=== PATIENT | female | born 1990 | race Caucasian/White ===

== ENCOUNTER 2018-06-30 21:44 | Emergency (ER) | payer SELFPAY ==
[2018-06-30 21:54] VITALS: TEMP 97.9; BMI 22.6
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
[2018-06-30] MEDS ORDERED: SODIUM CHLORIDE 1,000 ML IV STA (22:05)
[2018-06-30] MEDS ORDERED: ACETAMINOPHEN 1000 MG/100 ML VIAL (NON FORMULARY) IVPB ONE (22:05)
[2018-06-30 23:15] LABS: BASO % 0.6 % (0-2.0); EOS % 1.4 % (0-4.5); HEMATOCRIT 38.6 % (32.4-45.2); HEMOGLOBIN 12.8 GM/dL (10.7-15.3); LYMPH % 37.3 % (8-40); MCH 27.8 pg (25.7-33.7); MCHC 33.2 g/dl (32.0-36.0); MEAN CELL VOLUME 83.9 fl (80-96); MEAN PLT VOLUME 9.5 fl (7.5-11.1); MONO % 7.1 % (3.8-10.2); NEUT % 53.6 % (42.8-82.8); PLATELET COUNT 231 K/MM3 (134-434); RDW 14.7 % (11.6-15.6); WHITE BLOOD COUNT 7.5 K/mm3 (4.0-10.0)
[2018-06-30 23:25] LABS: ALBUMIN 3.8 g/dl (3.4-5.0); ALK PHOS 56 U/L (45-117); ANION GAP 8 MMOL/L (8-16); BILIRUBIN,TOTAL 0.2 mg/dL (0.2-1.0); BLOOD UREA NITROGEN 15 mg/dL (7-18); CALCIUM 8.6 mg/dL (8.5-10.1); CHLORIDE 104 mmol/L (98-107); CO2 28 mmol/L (21-32); CREATININE 0.6 mg/dL (0.55-1.3); GLUCOSE,RANDOM 89 mg/dL (74-106); SGPT/ALT 24 U/L (13-61); SODIUM 140 mmol/L (136-145); TOT PROT 7.4 g/dl (6.4-8.2)
[2018-06-30 23:33] LABS: POTASSIUM 4.2 mmol/L (3.5-5.1); SGOT/AST 20 U/L (15-37)
[2018-07-01] MEDS ORDERED: ALPRAZolam 0.25 MG TABLET PO ONE ×2 (00:09→02:07)
[2018-07-01] MEDS ORDERED: ALPRAZolam 0.25 MG TABLET ONE ×2 (00:32→02:37)
[2018-07-01] MEDS ORDERED: KETOROLAC TROMETHAMINE 30 MG/1 ML VIAL IVPUSH ONE (02:04)
[2018-07-01] MEDS ORDERED: KETOROLAC TROMETHAMINE 30 MG/1 ML VIAL ONE (02:37)
[2018-07-01 02:46] VITALS: BP 128/69; PULSE 86
--- NOTE | 2018-07-01 09:14 | EKG ---
Test Reason : Blood Pressure : / mmHG Vent. Rate : 089 BPM Atrial Rate : 089 BPM P-R Int : 154 ms QRS Dur : 084 ms QT Int : 364 ms P-R-T Axes : 030 046 041 degrees QTc Int : 442 ms NORMAL SINUS RHYTHM NORMAL ECG NO PREVIOUS ECGS AVAILABLE Confirmed by JANNA BRADLEY MD ([id number]) on 07/01/2018 9:13:58 AM Referred By: Confirmed By:JANNA BRDALEY MD
== END 2018-07-01 02:46 | disposition home or self-care (01) ==
LOC: JER 21:44
PROC: 3E0337Z Introduction of Electrolytic and Water Balance Substance into Peripheral Vein, Percutaneous Approach (ICD-10-PCS; principal; 2018-06-30)
PROC: 3E033NZ Introduction of Analgesics, Hypnotics, Sedatives into Peripheral Vein, Percutaneous Approach (ICD-10-PCS; 2018-06-30)
PROC: 3E0333Z Introduction of Anti-inflammatory into Peripheral Vein, Percutaneous Approach (ICD-10-PCS; 2018-06-30)
DX: S09.8XXA Other specified injuries of head, initial encounter (principal); S00.03XA Contusion of scalp, initial encounter; W18.39XA Other fall on same level, initial encounter; Y93.89 Activity, other specified; Y92.89 Other specified places as the place of occurrence of the external cause; Y99.8 Other external cause status
CPT/HCPCS: 36415; 70450-TC; 72125-TC; 80053; 84703; 85025; 93005; 93010; 99282-25; J0131; J7030

== ENCOUNTER 2018-12-13 09:07 | Emergency (ER) | payer OTHER ==
[2018-12-13 09:34] VITALS: BP 111/65; PULSE 60; TEMP 98.6; BMI 30.9
[2018-12-13 10:20] LABS: URINE APPEARANCE SLCLOUDY; URINE BILIRUBIN NEGATIVE (<2.0 mg/dL); URINE COLOR STRAW; URINE GLUCOSE (UA) NEGATIVE (NEGATIVE); URINE KETONE NEGATIVE (NEGATIVE); URINE LEUK ESTERASE TRACE (NEGATIVE); URINE NITRITE NEGATIVE (NEGATIVE); URINE PROTEIN NEGATIVE (NEGATIVE); URINE UROBILINOGEN NEGATIVE mg/dL (0.2-1.0)
[2018-12-13 10:21] LABS: HCG,QUALITATIVE URINE Negative
[2018-12-13 10:42] LABS: EPI CELLS FEW /HPF (FEW); URINE MUCUS RARE
--- NOTE | 2018-12-13 10:54 | PDOC ---
History of Present Illness - General Chief Complaint: Back Pain Stated Complaint: BACK PAIN Time Seen by Provider: 12/13/18 09:34 History Source: Patient Exam Limitations: No Limitations - History of Present Illness Initial Comments: 12/13/18 09:48 28-year-old female with no past medical history presents to ED with complaints of pain to her sacral region. Patient states had a poly-nidal cyst or year ago which was removed by Dr. maya, surgeon. Patient states similar discomfort with previous episode. Patient denies fever, chills amassed to the area, rectal pressure change in bowel pattern, or abdominal distention. Patient does state intermittent left lower quadrant pain which she states is a cramp-like sensation without urinary complaints or irregular menses. Timing/Duration: other (3 weeks) Severity: mild Associated Symptoms: reports: other Past History - Travel Traveled outside of the country in the last 30 days: No Close contact w/someone who was outside of country & ill: No - Past Medical History Allergies/Adverse Reactions: Allergies Allergy/AdvReac Type Severity Reaction Status Date / Time ciprofloxacin Allergy Intermediate Hives Verified 12/13/18 09:35 levofloxacin [From Levaquin] Allergy Intermediate Hives Verified 12/13/18 09:35 Penicillins Allergy Intermediate Hives Verified 12/13/18 09:35 Home Medications: Ambulatory Orders NK [No Known Home Medication] 06/30/18 COPD: No Other medical history: pylonidal cyst w/surgery - Suicide/Smoking/Psychosocial Hx Smoking History: Never smoked Have you smoked in the past 12 months: No Information on smoking cessation initiated: No Hx Alcohol Use: No Drug/Substance Use Hx: No Patient Lives Alone: No Lives with/in: spouse/SO Review of Systems - Review of Systems Able to Perform ROS?: No Is the patient limited French proficient: No Constitutional: No: Symptoms Reported HEENTM: No: Symptoms Reported Respiratory: No: Symptoms reported ABD/GI: Yes: Abdominal cramping : No: Symptoms Reported Musculoskeletal: Yes: Other (sacral pressure) Integumentary: No: Symptoms Reported Neurological: No: Symptoms reported Endocrine: No: Symptoms Reported Hematologic/Lymphatic: No: Symptoms Reported *Physical Exam - Vital Signs Last Vital Signs Temp Pulse Resp BP Pulse Ox 98.6 F 60 16 111/65 100 12/13/18 09:32 12/13/18 09:32 12/13/18 09:32 12/13/18 09:32 12/13/18 09:32 - Physical Exam General Appearance: Yes: Nourished, Appropriately Dressed. No: Apparent Distress Respiratory/Chest: positive: Lungs Clear, Normal Breath Sounds. negative: Respiratory Distress, Accessory Muscle Use Cardiovascular: positive: Regular Rhythm, Regular Rate. negative: Murmur Gastrointestinal/Abdominal: positive: Normal Bowel Sounds, Soft, Tenderness ( mild left lower quadrant with deep palpation) Rectal Exam: positive: other (noted sacral tenderness without visual erythema palpable fluctuance or increased warmth.). negative: hemorrhoids Integumentary: positive: Normal Color, Warm, Moist Neurologic: positive: Motor Strength 5/5 (ambulatory) Moderate Sedation - Procedure Monitoring Vital Signs: Procedure Monitoring Vital Signs Temperature 98.6 F 12/13/18 09:32 Pulse Rate 60 12/13/18 09:32 Respiratory Rate 16 12/13/18 09:32 Blood Pressure 111/65 12/13/18 09:32 O2 Sat by Pulse Oximetry (%) 100 12/13/18 09:32 ED Treatment Course - ADDITIONAL ORDERS Additional order review: Laboratory Results 12/13/18 10:06 Urine Color Straw Urine Appearance Slcloudy Urine pH 5.0 Ur Specific [place] 1.010 Urine Protein Negative Urine Glucose (UA) Negative Urine Ketones Negative Urine Blood Negative Urine Nitrite Negative Urine Bilirubin Negative Urine Urobilinogen Negative Ur Leukocyte Esterase Trace Urine WBC (Auto) 1 Urine RBC (Auto) <1 Ur Epithelial Cells Few Urine Mucus Rare Urine HCG, Qual Negative - RADIOLOGY Radiology Studies Ordered: Category Date Time Status ABDOMEN & PELVIS CT W/O CONTR [CT] Stat CT Scan 12/13/18 09:51 Ordered Medical Decision Making - Medical Decision Making 12/13/18 09:53 Plan: Sacral tenderness for the past 3 weeks worsened with sitting. Patient also states intermittent left lower quadrant pain without associated symptoms or correlation with sacral pain. Patient history of pilonidal cyst one year ago excised by surgeon at [facility] Exam: Sacral tenderness with left lower quadrant tenderness. Plan: Urinalysis urine along with abdominal pelvic CT without contrast. surgical consult performed in the ED . 12/13/18 10:54 Laboratory Tests 12/13/18 10:06 Urine Ketones Negative Urine Blood Negative Urine Nitrite Negative Urine Urobilinogen Negative Ur Leukocyte Esterase Trace Urine WBC (Auto) 1 Urine RBC (Auto) <1 Urine HCG, Qual Negative 12/13/18 12:20 CT shows no acute findings including free air, obstruction or masses. Patient was consult at again by the surgeon who recommended follow-up with a primary care physician. Patient requesting primary care referral. Patient given [facility] [place]. *DC/Admit/Observation/Transfer Diagnosis at time of Disposition: Sacral pain - Discharge Dispostion Disposition: HOME Condition at time of disposition: Good - Referrals Referrals: Rios Childers MD [Staff Physician] - - Patient Instructions Printed Discharge Instructions: DI for Abdominal Pain-Adult Additional Instructions: At this time your CAT scan and urine were negative for acute findings. I recommend finding up with the primary care physician and the surgeon as needed. May take Motrin or Tylenol for discomfort. - Post Discharge Activity
--- NOTE | 2018-12-13 11:09 | CONSULT ---
Consult Consult Specialty:: General Surgery Referred by:: Markus Alejo Reason for Consultation:: pain in sacrococcygeal area - History of Present Illness Chief Complaint: sacrococcygeal pain, LLQ pain History of Present Illness: 28yo F with h/o pilonidal abscess drained by me in ER Oct 2017, site healed, presents with 3 weeks of coccygeal pain and tenderness, especially when sitting. No skin changes or drainage from area. She and also report LLQ pain intermittently, with associated nausea, chills - not related to pilonidal pain, but unclear etiology. They saw someone in a clinic 2 weeks ago, and she was not , and has had her cycle. She is not on antibiotics, takes only tylenol or ibuprofen for pain which helps sometimes, but it does not last. She has normal, soft BMs, no urinary symptoms, and no fevers. In ER, she is afebrile and moving comfortably. Seen in vertical room with NAVIGATION OFFICER, history obtained with help of for [place]ian translation. - History Source History Provided By: Patient, Family Member () Limitations to Obtaining History: Language Barrier (Namibian - assisted by ) - Past Medical History ...: No ...Para: 1 Dermatology: Yes: Other (pilonidal abscess 11/04) - Past Surgical History Additional Surgical History: I&D pilonidal abscess 11/04 - Alcohol/Substance Use Hx Alcohol Use: Yes (social) History of Substance Use: reports: None - Smoking History Smoking history: Current every day smoker Have you smoked in the past 12 months: Yes Aproximately how many cigarettes per day: 7 - Social History Usual Living Arrangement: With Spouse ADL: Independent Home Medications - Allergies Allergies/Adverse Reactions: Allergies Allergy/AdvReac Type Severity Reaction Status Date / Time ciprofloxacin Allergy Intermediate Hives Verified 12/13/18 09:35 levofloxacin [From Levaquin] Allergy Intermediate Hives Verified 12/13/18 09:35 Penicillins Allergy Intermediate Hives Verified 12/13/18 09:35 - Home Medications Home Medications: Ambulatory Orders NK [No Known Home Medication] 06/30/18 Family Disease History - Family Disease History Family History: Unremarkable (noncontributory) Review of Systems - Review of Systems Constitutional: reports: Chills (with pain), Diaphoresis (with abd pain). denies: Fever Eyes: denies: Blurred Vision, Recent Change in Vision HENT: denies: Difficult Swallowing, Throat Pain Neck: denies: Swollen Glands, Tenderness Cardiovascular: denies: Chest Pain, Palpitations Respiratory: denies: Cough, SOB Gastrointestinal: reports: Abdominal Pain (LLQ with hpi), Nausea (with abd pain) . denies: Constipation, Diarrhea, Vomiting Genitourinary: denies: Burning, Dysuria Musculoskeletal: reports: Back Pain (sacrococcygeal, with hpi). denies: Joint Pain, Muscle Pain Integumentary: denies: Change in Color, Erythema, Lump, Rash Neurological: denies: Dizziness, Headache Physical Exam Vital Signs: Vital Signs Temperature 98.6 F 12/13/18 09:32 Pulse Rate 60 12/13/18 09:32 Respiratory Rate 16 12/13/18 09:32 Blood Pressure 111/65 12/13/18 09:32 O2 Sat by Pulse Oximetry (%) 100 12/13/18 09:32 Constitutional: Yes: Well Nourished, No Distress, Calm Eyes: Yes: Conjunctiva Clear, EOM Intact HENT: Yes: Atraumatic, Normocephalic Neck: Yes: Supple, Trachea Midline Cardiovascular: Yes: Regular Rate and Rhythm Respiratory: Yes: Regular, CTA Bilaterally Gastrointestinal: Yes: Soft, Tenderness (mild LLQ, no sergei or guarding). No: Distention ...Rectal Exam: Yes: Deferred, Other (pilonidal area with well-healed scar, deep cleft, no visible pits, no erythema, no swelling, + tenderness) Renal/: No: CVA Tenderness - Left, CVA Tenderness - Right Musculoskeletal: No: Joint Stiffness, Joint Swelling Extremities: No: Cool, Cyanosis Edema: No Peripheral Pulses WNL: Yes Integumentary: Yes: Tattoos. No: Erythema, Jaundice, Rash Neurological: Yes: Alert, Oriented. No: Unsteady Gait Psychiatric: Yes: Alert, Oriented Labs: Laboratory Results - last 24 hr 12/13/18 10:06 Urine Color Straw Urine Appearance Slcloudy Urine pH 5.0 Ur Specific [place] 1.010 Urine Protein Negative Urine Glucose (UA) Negative Urine Ketones Negative Urine Blood Negative Urine Nitrite Negative Urine Bilirubin Negative Urine Urobilinogen Negative Ur Leukocyte Esterase Trace Urine WBC (Auto) 1 Urine RBC (Auto) <1 Ur Epithelial Cells Few Urine Mucus Rare Urine HCG, Qual Negative Imaging - Results Cat Scan: Report Reviewed, Image Reviewed (images reviewed - no fluid collection in sacrococcygeal area or marlon cleft; no diverticulitis, free air or fluid in abdomen, no obstruction, no hernia; enlarged uterus ?fibroids) Problem List - Problems (1) H/O pilonidal cyst Assessment/Plan: abscess drained just over a year ago, scar well-healed tender in area but no external signs of infection or recurrence will check CT to ensure no deep collection CT done and reviewed - no apparent collection deep or superficial suspect area is tender because of thinner tissue layer over bone advised limiting sitting for long periods, may try donut cushion needs to establish care with a PMD referred to [facility] clinic across [address] no need for intervention or abx at this time Code(s): Z87.2 - PERSONAL HISTORY OF DISEASES OF THE SKIN, SUBCU (2) Coccygeal pain Code(s): M53.3 - SACROCOCCYGEAL DISORDERS, NOT ELSEWHERE CLASSIFIED (3) LLQ pain Assessment/Plan: unclear etiology CT pending pt about mid-cycle on menses preg test negative CT shows no clear source/etiology uterus is somewhat enlarged ?fibroids pt should f/u with a PMD and/or BARTENDER MANAGER Code(s): R10.32 - LEFT LOWER QUADRANT PAIN (4) Tobacco dependence due to cigarettes Assessment/Plan: counseled regarding cessation Code(s): F17.210 - NICOTINE DEPENDENCE, CIGARETTES, UNCOMPLICATED
== END 2018-12-13 12:29 | disposition home or self-care (01) ==
LOC: JER 09:07
DX: M53.3 Sacrococcygeal disorders, not elsewhere classified (principal); R10.32 Left lower quadrant pain; F17.210 Nicotine dependence, cigarettes, uncomplicated; Z87.2 Personal history of diseases of the skin and subcutaneous tissue; Z88.0 Allergy status to penicillin; Z88.1 Allergy status to other antibiotic agents
CPT/HCPCS: 74176-TC; 81003; 81015; 84703; 99281-25